=== PATIENT | male | born 1960 | race Caucasian/White ===

== ENCOUNTER 2017-11-13 13:06 | Inpatient (IN) | payer BC ==
[~2017-11-13] VITALS: Ht 175.3 cm; Wt 79.7 kg
[~2017-11-13 13:06] MED LIST: CENTTAB41 PO; HYDC25 PO; OXYC-57 PO; PRLSR20 PO; PROM25TA; SERT-234 PO
[2017-11-13] MEDS ORDERED: VANCOMYCIN IV 1,000 MG in SODIUM CHLORIDE 0.9% 250ML 250 ML IV STA (13:53)
[2017-11-13] MEDS ORDERED: PIPERACILLIN/TAZOBACTAM 3.375 GM/100ML D5W IV STA (13:53)
[2017-11-13] MEDS ORDERED: ACETAMINOPHEN IV 1,000 MG in EMPTY BAG 0 ML IV ONE (14:00)
[2017-11-13] MEDS ORDERED: SODIUM CHLORIDE 0.9% 1000ML 1,000 ML IV ONE (14:00)
[2017-11-13] MEDS ORDERED: MoRPHine SULFATE 4 MG/ML 1 ML CARP\\VIAL IV ONE (14:00)
[2017-11-13 14:19] LABS: BASO % 0.2 %; BASO ABS # 0.03 K/uL (0-0.2); EOS % 0.6 %; EOS ABS # 0.08 K/uL (0-0.5); HEMATOCRIT 40.4 % (42-52); HEMOGLOBIN 14.3 g/dL (14.0-18.0); IG# 0.05 K/uL (0.00-0.02); LYMPH % 13.9 %; LYMPH ABS # 1.78 K/uL (1.2-3.4); MEAN CELL VOLUME 88.6 fL (80-100); MEAN CORPUSCULAR HEMOGLOBIN 31.4 pg (25-34); MEAN CORPUSCULAR HGB CONC 35.4 g/dl (32-36); MEAN PLATELET VOLUME 10.3 fL (7.4-10.4); MONO % 15.5 %; MONO ABS # 1.98 K/uL (0.11-0.59); NEUT % 69.4 %; NEUT ABS # 8.84 K/uL (1.4-6.5); PLATELET COUNT 162 K/uL (130-400); RED CELL DISTRIBUTION WIDTH CV 12.6 % (11.5-14.5); RED CELL DISTRIBUTION WIDTH SD 40.7 fL (36.4-46.3); WHITE BLOOD COUNT 12.76 K/uL (4.8-10.8)
[2017-11-13 14:38] LABS: ALBUMIN 3.5 gm/dl (3.4-5.0); CALCIUM 8.6 mg/dl (8.5-10.1); CREATININE 0.88 mg/dl (0.60-1.40); POTASSIUM 4.1 mmol/L (3.5-5.1); TOTAL PROTEIN 7.3 gm/dl (6.4-8.2); URIC ACID 3.5 mg/dl (2.6-7.2)
[2017-11-13] MEDS ORDERED: CITA-295 PO (15:03)
[2017-11-13] MEDS ORDERED: LISI-729 PO (15:03)
[2017-11-13] MEDS ORDERED: LOVA40TA3 PO (15:03)
[2017-11-13] MEDS ORDERED: PRLSR20 PO (15:03)
[2017-11-13] MEDS ORDERED: MELO-84 PO (15:03)
[2017-11-13] MEDS ORDERED: ESOM20CA PO (15:03)
--- NOTE | 2017-11-13 15:11 | DIAGNOSTIC IMAGING REPORT ---
R ANKLE MIN 3 VIEWS ROUTINE, R FOOT MIN 3 VIEWS ROUTINE HISTORY: 57 years-old Male Right ankle pain acute right foot and ankle pain COMPARISON: None available TECHNIQUE: 3 views of the right ankle and 3 views of the right foot FINDINGS: ANKLE: Mild marginal spurring about the tibiotalar joint. No acute fracture, dislocation or osteochondral defect. Post traumatic and postoperative changes of the calcaneus as below. Prominent dorsal spurring about the anterior process talus. Large enthesophyte about the Achilles calcaneus. Moderate joint effusion. Mild soft tissue swelling about the ankle, greatest laterally. Suspected vascular calcifications. FOOT: Chronic healed fracture deformity of the calcaneus with multiple plate and screw fusion hardware from prior ORIF. Degenerative changes of the calcaneal cuboid articulation with bony fusion of the subtalar joint. No evidence of hardware fracture or loosening. Type I accessory navicular. Mild to moderate osteoarthritis about the first MTP joint with mild hallux valgus deformity. No acute fracture or dislocation identified. IMPRESSION: 1. Soft tissue swelling without acute fracture or dislocation. 2. Postoperative changes of the calcaneus as above without evidence of hardware fracture or loosening. The above report was generated using voice recognition software. It may contain grammatical, syntax or spelling errors. Electronically signed by: Ulises Rosenbaum M.D. 11/13/2017 3:10 PM Dictated Date/Time: 11/13/2017 3:06 PM
--- NOTE | 2017-11-13 15:54 | EMERGENCY ROOM VISIT NOTE ---
History First contact with patient: 13:33 Chief Complaint: SWELLING TO EXTREMITY Stated Complaint: REFERRED BY History of Present Illness The patient is a 57 year old male who presents to the Emergency Room with complaints of pain and swelling to his right foot and ankle that is worsening over the past 2 days. The patient has a significant history of injury to both his right and left foot and ankle after falling out of a tree stand during hunting season 15 feet about 10 years ago. The patient subsequently developed infection that required multiple surgical washouts and a PICC line at home. Much of his repeat surgeries have been to his left lower extremity, but now he has pain in his right foot and right ankle. He attempted to go to work yesterday, but had worsening pain and a fever. He saw his primary care physician where he had outpatient blood work drawn and showed an elevated white count of greater than 18,000. He also had x-rays that showed possible malalignment of some of his hardware. The patient was started on Keflex and has taken 2 doses of the medication at this point. When the patient got up today his pain was much worse than yesterday and he was not able to walk without crutches. He takes Mobic daily, but this has not significantly improved his symptoms. Patient does not report tick bite or history of gout. He does not have pain of his knees, hips, or back. He rates his current discomfort a 7/10 that worsens with walking. Review of Systems More than 10 systems were reviewed and otherwise negative with the exception of history of present illness. Past Medical/Surgical History Medical Problems: (1) Anxiety (2) Depression (3) GERD (gastroesophageal reflux disease) (4) HLD (hyperlipidemia) (5) HTN (hypertension) (6) Tobacco use disorder (7) Traumatic injury of left lower extremity (8) Traumatic injury of right lower extremity History of multiple surgeries to right lower and left lower extremities Family History No pertinent family history Social History Smoking Status: Current Every Day Smoker Current/Historical Medications Scheduled Citalopram Hydrobromide (Citalopram), 20 MG PO DAILY Esomeprazole Magnesium (Nexium), 20 MG PO DAILY Lisinopril (Prinivil), 5 MG PO DAILY Lovastatin (Mevacor), 40 MG PO HS Meloxicam (Mobic), 15 MG PO DAILY Multivitamin (Multivitamin), 1 TAB PO DAILY Physical Exam Vital Signs Date Time Temp Pulse Resp B/P (MAP) Pulse Ox O2 Delivery O2 Flow Rate FiO2 11/13/17 16:21 66 18 86/47 95 Room Air 11/13/17 15:06 76 18 101/52 95 Room Air 11/13/17 13:09 37.8 92 16 131/81 96 Room Air Physical Exam VITALS: Vitals are noted on the nurse's note and reviewed by myself. Vital signs with low-grade fever GENERAL: Well-developed, well-nourished, white male, who is in no acute distress and resting comfortably. Patient is cooperative with the examination. HEART: Regular rate and rhythm without murmurs gallops or rubs. LUNGS: Clear to auscultation bilaterally without wheezes, rales or rhonchi. No retractions or accessory muscle use. MUSCULOSKELETAL: Erythema and edema is appreciated over the right lower extremity across the plantar aspect of the foot on the right lateral side as well as into the right ankle. There is no appreciable fluctuance or joint space effusion. Patient is able to wiggle the toes and has full sensation distally. There is mild tenderness around the anterior and posterior ankle without obvious palpable cord or lymphangitic streaking. Patient is able to plantarflex and dorsiflex NEURO: Patient was alert and oriented to person place and time. CN II through XII grossly intact. No focal neurological deficits. SKIN: The skin was without other rashes, erythema, edema, or bruising. Capillary refill less than 2 seconds. Medical Decision & Procedures ER Provider Diagnostic Interpretation: R ANKLE MIN 3 VIEWS ROUTINE, R FOOT MIN 3 VIEWS ROUTINE HISTORY: 57 years-old Male Right ankle pain acute right foot and ankle pain COMPARISON: None available TECHNIQUE: 3 views of the right ankle and 3 views of the right foot FINDINGS: ANKLE: Mild marginal spurring about the tibiotalar joint. No acute fracture, dislocation or osteochondral defect. Post traumatic and postoperative changes of the calcaneus as below. Prominent dorsal spurring about the anterior process talus. Large enthesophyte about the Achilles calcaneus. Moderate joint effusion. Mild soft tissue swelling about the ankle, greatest laterally. Suspected vascular calcifications. FOOT: Chronic healed fracture deformity of the calcaneus with multiple plate and screw fusion hardware from prior ORIF. Degenerative changes of the calcaneal cuboid articulation with bony fusion of the subtalar joint. No evidence of hardware fracture or loosening. Type I accessory navicular. Mild to moderate osteoarthritis about the first MTP joint with mild hallux valgus deformity. No acute fracture or dislocation identified. IMPRESSION: 1. Soft tissue swelling without acute fracture or dislocation. 2. Postoperative changes of the calcaneus as above without evidence of hardware fracture or loosening. Laboratory Results 11/13/17 14:00 Red Blood Count 4.56, Mean Corpuscular Volume 88.6, Mean Corpuscular Hemoglobin 31.4, Mean Corpuscular Hemoglobin Concent 35.4, Mean Platelet Volume 10.3, Neutrophils (%) (Auto) 69.4, Lymphocytes (%) (Auto) 13.9, Monocytes (%) (Auto) 15.5, Eosinophils (%) (Auto) 0.6, Basophils (%) (Auto) 0.2, Neutrophils # (Auto ) 8.84, Lymphocytes # (Auto) 1.78, Monocytes # (Auto) 1.98, Eosinophils # (Auto ) 0.08, Basophils # (Auto) 0.03 11/13/17 14:00 Test 11/13/17 14:00 11/13/17 14:11 White Blood Count 12.76 K/uL (4.8-10.8) Red Blood Count 4.56 M/uL (4.7-6.1) Hemoglobin 14.3 g/dL (14.0-18.0) Hematocrit 40.4 % (42-52) Mean Corpuscular Volume 88.6 fL (80-100) Mean Corpuscular Hemoglobin 31.4 pg (25-34) Mean Corpuscular Hemoglobin Concent 35.4 g/dl (32-36) Platelet Count 162 K/uL (130-400) Mean Platelet Volume 10.3 fL (7.4-10.4) Neutrophils (%) (Auto) 69.4 % Lymphocytes (%) (Auto) 13.9 % Monocytes (%) (Auto) 15.5 % Eosinophils (%) (Auto) 0.6 % Basophils (%) (Auto) 0.2 % Neutrophils # (Auto) 8.84 K/uL (1.4-6.5) Lymphocytes # (Auto) 1.78 K/uL (1.2-3.4) Monocytes # (Auto) 1.98 K/uL (0.11-0.59) Eosinophils # (Auto) 0.08 K/uL (0-0.5) Basophils # (Auto) 0.03 K/uL (0-0.2) RDW Standard Deviation 40.7 fL (36.4-46.3) RDW Coefficient of Variation 12.6 % (11.5-14.5) Immature Granulocyte % (Auto) 0.4 % Immature Granulocyte # (Auto) 0.05 K/uL (0.00-0.02) Erythrocyte Sedimentation Rate 40 mm/hr (0-14) Anion Gap 6.0 mmol/L (3-11) Est Creatinine Clear Calc Drug Dose 93.8 ml/min Estimated GFR () 111.3 Estimated GFR (Non- 96.0 BUN/Creatinine Ratio 13.2 (10-20) Uric Acid 3.5 mg/dl (2.6-7.2) Calcium Level 8.6 mg/dl (8.5-10.1) Total Bilirubin 0.4 mg/dl (0.2-1) Aspartate Amino Transf (AST/SGOT) 12 U/L (15-37) Alanine Aminotransferase (ALT/SGPT) 19 U/L (12-78) Alkaline Phosphatase 77 U/L (45-117) C-Reactive Protein 10.70 mg/dl (0-0.29) Total Protein 7.3 gm/dl (6.4-8.2) Albumin 3.5 gm/dl (3.4-5.0) Globulin 3.8 gm/dl (2.5-4.0) Albumin/Globulin Ratio 0.9 (0.9-2) Lyme Disease IgG Antibody NEG (NEG) Lyme Disease IgM Antibody NEG (NEG) Bedside Lactic Acid Venous 0.43 mmol/L (0.90-1.70) Medications Administered Medications (Trade) Dose Ordered Sig/Sally Route Start Time Stop Time Status Last Admin Dose Admin Sodium Chloride 1,000 ml @ 999 mls/hr Q1H1M ONCE IV 11/13/17 14:00 11/13/17 15:00 DC 11/13/17 14:14 999 MLS/HR Morphine Sulfate (MoRPHine SULFATE INJ) 4 mg NOW ONCE IV 11/13/17 14:00 11/13/17 14:01 DC 11/13/17 14:10 4 MG Vancomycin HCl 1000 mg/Sodium Chloride 270 ml @ 125 mls/hr NOW STAT IV 5/18/18 13:53 11/13/17 16:02 DC 11/13/17 14:42 125 MLS/HR Piperacillin Sod/ Tazobactam Sod (Zosyn Iv) 3.375 gm NOW STAT IV 11/13/17 13:53 11/13/17 13:59 DC 11/13/17 14:32 3.375 GM Acetaminophen 1000 mg/Empty Bag 100 ml @ 400 mls/hr NOW ONCE IV 11/13/17 14:00 11/13/17 14:14 DC 11/13/17 14:10 400 MLS/HR ED Course Physical exam and history were performed. Nursing notes, EMR, and Medication List were personally reviewed. Patient appears to have cellulitis of the right lower foot and ankle worsening over the past few days. Based on the exam I do not appreciate an obvious abscess or drainable collection. He does not seem to have a distinctly septic joint. He has been febrile at home and has an outpatient white blood cell count of greater than 18,000, making infection highly concerning. IV access was established and labs were obtained. The patient was hydrated with normal saline. He was given IV vancomycin and Zosyn here in the department after blood cultures were gathered. The patient was given morphine for pain control. Plain films and ultrasound were ordered. The patient's blood work is as above and was reviewed. He does have a consistent white blood cell count elevation, however this is slightly improved at 12.7. His lactic acid is negative with cultures pending. CRP and sed rate are both elevated. Uric acid and Lyme were negative. His x-rays show hardware and edema but no obvious new fracture findings. Ultrasound does not show evidence of DVT. The case was discussed with my attending physician, Dr. Kincaid, and we are concerned as the patient has a cellulitis in the area of previous surgery. The case was discussed with the [facility], who agreed to evaluate the patient here in the department. Of note, [facility] did consult orthopedics, who recommended a CT scan be performed. This will be performed from the floor and the patient will be evaluated by orthopedics after admission. Please see the [facility] dictation for further patient course, plan, and disposition. The chart was completed utilizing [employer] Voice Recognition Software. Grammatical errors, random word insertions, pronoun errors, and incomplete sentences are an occasional consequence of this system due to software limitations, ambient noise, and hardware issues. Any formal questions or concerns about the content, text, or information contained within the body of this dictation should be directly addressed to the provider for clarification. . Medical Decision Differential diagnosis: Etiologies such as cellulitis, abscess, MRSA infection, DVT, necrotizing fasciitis, dermatitis, drug eruption, as well as others were entertained.. Impression Primary Impression: Cellulitis of right lower extremity Departure Information Referrals Maeve Asher D.O. (PCP) Patient Instructions My [facility]
[2017-11-13] MEDS ORDERED: ACETAMINOPHEN 325 MG TAB PO PRN (16:30)
[2017-11-13] MEDS ORDERED: MULT-506 PO (16:31)
--- NOTE | 2017-11-13 16:37 | History and Physical ---
History & Physical Date & Time of Service: November 13, 2017 at 16:36 Chief Complaint: Referred By Primary Care Physician: Maeve Asher D.O. History of Present Illness Source: patient, family (at bedside ), clinic records, hospital records This is a 57yo M with a PMH of traumatic injuries to BLE in 2006 s/p multiple surgeries, HTN, HLD, tobacco use disorder and other medical problems listed below who presents with R foot/ankle pain and swelling x 2 days. Patient's history is significant for multiple orthopedic surgeries after he fell ~15 feet out of a tree stand while hunting in 2006. Developed an infection after initial surgery and required multiple washouts and PICC line abx in [id number]. A majority of surgeries were performed in [place] by Dr. Benedict and hardware is present in both lower extremities. Denies having any issues since 2007. Over the past few days, has been experiencing worsening pain in lateral aspect of R ankle and foot with associated swelling and redness. Denies recent fall, trauma or wound. No history of gout or tick bites. Tried to go to work yesterday but developed worsening pain and fever. Went to urgent care and was started on Keflex. Pain worsened overnight and patient saw PCP this morning. Was found to have a fever of 101 and leukocytosis of 18 and was sent to ED for further evaluation of infection. Patient is unable to ambulate without crutches. Pain persists at a 6/10 despite morphine. Denies chills, lightheadedness, headache, visual changes, URI symptoms, chest pain, SOB, abd pain, nausea, vomiting, dysuria, constipation or diarrhea. Found to have a low grade fever of 100, leukocytosis of 12.75 and elevated ESR and CRP. Lactate is WNL. Past Medical/Surgical History Medical Problems: (1) Anxiety Status: Chronic (2) Depression Status: Chronic (3) GERD (gastroesophageal reflux disease) Status: Chronic (4) HLD (hyperlipidemia) Status: Chronic (5) HTN (hypertension) Status: Chronic (6) Tobacco use disorder Status: Chronic (7) Traumatic injury of left lower extremity Permanent Comment: S/p multiple surgeries by [facility]. 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 ) Immunizations History of Influenza Vaccine: No History of Tetanus Vaccine?: Yes Tetanus Immunization Date: Jul 07, 2002 History of Pneumococcal: No History of Hepatitis B Vaccine: No Allergies Coded Allergies: No Known Allergies (Verified , 11/13/17) Home Medications Scheduled Citalopram Hydrobromide (Citalopram), 20 MG PO DAILY Esomeprazole Magnesium (Nexium), 20 MG PO DAILY Lisinopril (Prinivil), 5 MG PO DAILY Lovastatin (Mevacor), 40 MG PO HS Meloxicam (Mobic), 15 MG PO DAILY Multivitamin (Multivitamin), 1 TAB PO DAILY Review of Systems Ten systems reviewed and negative except as noted in the HPI. Physical Exam Vital Signs Date Time Temp Pulse Resp B/P (MAP) Pulse Ox O2 Delivery O2 Flow Rate FiO2 11/13/17 16:21 66 18 86/47 95 Room Air 11/13/17 15:06 76 18 101/52 95 Room Air 11/13/17 13:09 37.8 92 16 131/81 96 Room Air General Appearance: WD/WN, no apparent distress Head: normocephalic, atraumatic Eyes: normal inspection, PERRL, sclerae normal ENT: normal ENT inspection, hearing grossly normal, pharynx normal Neck: supple, thyroid normal, trachea midline Respiratory/Chest: chest non-tender, lungs clear, normal breath sounds, no respiratory distress, no accessory muscle use Cardiovascular: regular rate, rhythm, no murmur, normal peripheral pulses Abdomen/GI: non tender, soft, no organomegaly Back: normal inspection Extremities/Musculoskelatal: no calf tenderness, no pedal edema, + pertinent finding (Lateral R foot/ankle with TTP, edema, redness and warmth to touch) Neurologic/Psych: no motor/sensory deficits, alert, normal mood/affect, oriented x 3 Skin: normal color, warm/dry Diagnostics Laboratory Results Results Past 24 Hours Test 11/13/17 14:00 11/13/17 14:11 Range/Units White Blood Count 12.76 4.8-10.8 K/uL Red Blood Count 4.56 4.7-6.1 M/uL Hemoglobin 14.3 14.0-18.0 g/dL Hematocrit 40.4 42-52 % Mean Corpuscular Volume 88.6 80-100 fL Mean Corpuscular Hemoglobin 31.4 25-34 pg Mean Corpuscular Hemoglobin Concent 35.4 32-36 g/dl Platelet Count 162 130-400 K/uL Mean Platelet Volume 10.3 7.4-10.4 fL Neutrophils (%) (Auto) 69.4 % Lymphocytes (%) (Auto) 13.9 % Monocytes (%) (Auto) 15.5 % Eosinophils (%) (Auto) 0.6 % Basophils (%) (Auto) 0.2 % Neutrophils # (Auto) 8.84 1.4-6.5 K/uL Lymphocytes # (Auto) 1.78 1.2-3.4 K/uL Monocytes # (Auto) 1.98 0.11-0.59 K/uL Eosinophils # (Auto) 0.08 0-0.5 K/uL Basophils # (Auto) 0.03 0-0.2 K/uL RDW Standard Deviation 40.7 36.4-46.3 fL RDW Coefficient of Variation 12.6 11.5-14.5 % Immature Granulocyte % (Auto) 0.4 % Immature Granulocyte # (Auto) 0.05 0.00-0.02 K/uL Erythrocyte Sedimentation Rate 40 0-14 mm/hr Sodium Level 136 136-145 mmol/L Potassium Level 4.1 3.5-5.1 mmol/L Chloride Level 106 98-107 mmol/L Carbon Dioxide Level 24 21-32 mmol/L Anion Gap 6.0 3-11 mmol/L Blood Urea Nitrogen 12 7-18 mg/dl Creatinine 0.88 0.60-1.40 mg/dl Est Creatinine Clear Calc Drug Dose 93.8 ml/min Estimated GFR () 111.3 Estimated GFR (Non- 96.0 BUN/Creatinine Ratio 13.2 10-20 Random Glucose 114 70-99 mg/dl Uric Acid 3.5 2.6-7.2 mg/dl Calcium Level 8.6 8.5-10.1 mg/dl Total Bilirubin 0.4 0.2-1 mg/dl Aspartate Amino Transf (AST/SGOT) 12 15-37 U/L Alanine Aminotransferase (ALT/SGPT) 19 12-78 U/L Alkaline Phosphatase 77 45-117 U/L C-Reactive Protein 10.70 0-0.29 mg/dl Total Protein 7.3 6.4-8.2 gm/dl Albumin 3.5 3.4-5.0 gm/dl Globulin 3.8 2.5-4.0 gm/dl Albumin/Globulin Ratio 0.9 0.9-2 Lyme Disease IgG Antibody NEG NEG Lyme Disease IgM Antibody NEG NEG Bedside Lactic Acid Venous 0.43 0.90-1.70 mmol/L Microbiology Results 11/13/17 Blood Culture, Received Pending 11/13/17 Blood Culture, Received Pending Diagnostic Radiology R ANKLE and FOOT XR: ANKLE: Mild marginal spurring about the tibiotalar joint. No acute fracture, dislocation or osteochondral defect. Post traumatic and postoperative changes of the calcaneus as below. Prominent dorsal spurring about the anterior process talus. Large enthesophyte about the Achilles calcaneus. Moderate joint effusion. Mild soft tissue swelling about the ankle, greatest laterally. Suspected vascular calcifications. FOOT: Chronic healed fracture deformity of the calcaneus with multiple plate and screw fusion hardware from prior ORIF. Degenerative changes of the calcaneal cuboid articulation with bony fusion of the subtalar joint. No evidence of hardware fracture or loosening. Type I accessory navicular. Mild to moderate osteoarthritis about the first MTP joint with mild hallux valgus deformity. No acute fracture or dislocation identified. IMPRESSION: 1. Soft tissue swelling without acute fracture or dislocation. 2. Postoperative changes of the calcaneus as above without evidence of hardware fracture or loosening. Impression Assessment and Plan This is a 57yo M with a PMH of traumatic injuries to BLE in 2006 s/p multiple surgeries, HTN, HLD, tobacco use disorder and other medical problems listed below who presents with R foot/ankle pain and swelling x 2 days. RLE cellulitis: -Meets SIRs criteria with out-patient fever of 101 and leuk of 12 -Non-toxic appearing -Lactate WNL -ESR of 40, CRP of 10.7, uric acid normal -Blood cultures pending -Ankle/foot XR with soft tissue swelling without acute fracture or dislocation No evidence of hardware fracture or loosening -RLE ultrasound without evidence of DVT -Empiric coverage with vanco, zosyn -IV fluids, pain control -Ortho consult in setting of complicated surgical hx and possible septic joint, hardware infection HTN: -Normotensive -Cont lisinopril Tobacco use disorder: -H/o 40 pack years -Not interested in cessation -Nicotine patch HLD: -Cont lovastatin Mood disorder: -Cont celexa GERD: -Cont PPI DVT Ppx: Lovenox SQ Code status: FULL PCP: [facility] Dispo: Admitted to med/surg. Plan to return home once medically stable. Patient seen in collaboration with Dr. Harrington. Please see addendum. ATTENDING ADDENDUM The patient was seen and examined in medical floor Admitted with right ankle pain, swelling and redness for about 1 week Has a fever as well Denies any chest pain, shortness of breath and/or palpitation on examination No apparent distress at rest Hemodynamically stable Local exam of the right ankle: Mildly swollen, redness involving lateral medial area, tender with increased local temperature is Ankle movement is moderately painful Labs, imaging studies were reviewed Heart the consulted Review with assessment and plan as mentioned earlier Dr. Varinder Harrington Resuscitation Status VTE Prophylaxis Will order VTE Prophylaxis: Yes
[2017-11-13] MEDS ORDERED: VANCOMYCIN CONSULT ACTIVE PRN (16:45)
[2017-11-13] MEDS ORDERED: PIPERACILL/TAZOBAC CONSULT ACTIVE PRN (16:45)
--- NOTE | 2017-11-13 16:51 | DIAGNOSTIC IMAGING REPORT ---
ULTRASOUND R VENOUS DOPP LOWER EXT UNILAT CLINICAL HISTORY: right lower extremity swelling COMPARISON STUDY: No previous studies for comparison. FINDINGS: Real-time and color flow Doppler imaging were performed. Flow was seen within the femoral, popliteal and calf veins with no intraluminal thrombus demonstrated. The saphenous vein is patent. IMPRESSION: No evidence of right lower extremity DVT. Electronically signed by: Miah Harper M.D. 11/13/2017 4:50 PM Dictated Date/Time: 11/13/2017 4:50 PM
[2017-11-13] MEDS ORDERED: VANCOMYCIN IV 1,000 MG in SODIUM CHLORIDE 0.9% 250ML 250 ML IV SCH (17:00)
[2017-11-13 18:10] VITALS: BP 108/57; PULSE 67; TEMP 36.9; O2SAT 97; Ht 175.3 cm; Wt 79.7 kg
[2017-11-13] MEDS: KETOROLAC TROMETHAMINE 30 MG/ML VIAL IV PRN (18:42)
[2017-11-13 19:03] LABS: PTT PATIENT 26.6 SECONDS (21.0-31.0)
--- NOTE | 2017-11-13 19:21 | Pharmacy Progress Note ---
Pharmacy Antibiotic Consult Date of Service: November 13, 2017. Pharmacy Dosing Scope Pharmacy is consulted to initiate VANCOMYCIN / ZOSYN IV dosing therapy, order appropriate labs and adjust drug dose/frequency. Subjective The patient is a 57 year old male admitted on November 13, 2017 at 16:22. Objective Height (Feet): 5 Height (Inches): 9.00 Weight (Kilograms): 79.700 Lab Results (24hrs): Test 11/13/17 14:00 11/13/17 14:11 White Blood Count 12.76 K/uL (4.8-10.8) Red Blood Count 4.56 M/uL (4.7-6.1) Hemoglobin 14.3 g/dL (14.0-18.0) Hematocrit 40.4 % (42-52) Mean Corpuscular Volume 88.6 fL (80-100) Mean Corpuscular Hemoglobin 31.4 pg (25-34) Mean Corpuscular Hemoglobin Concent 35.4 g/dl (32-36) Platelet Count 162 K/uL (130-400) Mean Platelet Volume 10.3 fL (7.4-10.4) Neutrophils (%) (Auto) 69.4 % Lymphocytes (%) (Auto) 13.9 % Monocytes (%) (Auto) 15.5 % Eosinophils (%) (Auto) 0.6 % Basophils (%) (Auto) 0.2 % Neutrophils # (Auto) 8.84 K/uL (1.4-6.5) Lymphocytes # (Auto) 1.78 K/uL (1.2-3.4) Monocytes # (Auto) 1.98 K/uL (0.11-0.59) Eosinophils # (Auto) 0.08 K/uL (0-0.5) Basophils # (Auto) 0.03 K/uL (0-0.2) RDW Standard Deviation 40.7 fL (36.4-46.3) RDW Coefficient of Variation 12.6 % (11.5-14.5) Immature Granulocyte % (Auto) 0.4 % Immature Granulocyte # (Auto) 0.05 K/uL (0.00-0.02) Erythrocyte Sedimentation Rate 40 mm/hr (0-14) Prothrombin Time 10.0 SECONDS (9.0-12.0) Prothromb Time International Ratio 1.0 (0.9-1.1) Activated Partial Thromboplast Time 26.6 SECONDS (21.0-31.0) Partial Thromboplastin Ratio 1.0 Sodium Level 136 mmol/L (136-145) Potassium Level 4.1 mmol/L (3.5-5.1) Chloride Level 106 mmol/L (98-107) Carbon Dioxide Level 24 mmol/L (21-32) Anion Gap 6.0 mmol/L (3-11) Blood Urea Nitrogen 12 mg/dl (7-18) Creatinine 0.88 mg/dl (0.60-1.40) Est Creatinine Clear Calc Drug Dose 93.8 ml/min Estimated GFR () 111.3 Estimated GFR (Non- 96.0 BUN/Creatinine Ratio 13.2 (10-20) Random Glucose 114 mg/dl (70-99) Uric Acid 3.5 mg/dl (2.6-7.2) Calcium Level 8.6 mg/dl (8.5-10.1) Total Bilirubin 0.4 mg/dl (0.2-1) Aspartate Amino Transf (AST/SGOT) 12 U/L (15-37) Alanine Aminotransferase (ALT/SGPT) 19 U/L (12-78) Alkaline Phosphatase 77 U/L (45-117) C-Reactive Protein 10.70 mg/dl (0-0.29) Total Protein 7.3 gm/dl (6.4-8.2) Albumin 3.5 gm/dl (3.4-5.0) Globulin 3.8 gm/dl (2.5-4.0) Albumin/Globulin Ratio 0.9 (0.9-2) Lyme Disease IgG Antibody NEG (NEG) Lyme Disease IgM Antibody NEG (NEG) Bedside Lactic Acid Venous 0.43 mmol/L (0.90-1.70) Micro Results: * 11/13/17 -- Blood x 2 -- pending Assessment & Plan 57yo male ordered VANCOMYCIN / ZOSYN for RLE cellulitis. Renal function is good. VANCOMYCIN: * Loading dose: VANCOMYCIN 1000mg IV X 1 dose in ER + second VANCOMYCIN 1000mg IV X 1 dose in ER for a total loading dose of 2000mg (25 mg/kg) then VANCOMYCIN 1250mg (~16mg/kg) IV every 10 hours. * Goal trough level estimate: between 15 - 20 mcg/mL. * Estimated Pk parameters: Vd ~0.7 L/kg Ke ~0.082 t1/2 ~8 hours * Trough level has been ordered for: @ 0000. Pharmacy will continue to follow and will adjust dose/frequency as necessary. Thank you
[2017-11-13] MEDS: SODIUM CHLORIDE 0.9% 1000ML 1,000 ML IV SCH (19:45)
[2017-11-13] MEDS: NICOTINE 21 MG/24 HR TDSY TD SCH (19:46)
[2017-11-13] MEDS: ENOXAPARIN 40 MG/0.4 ML SYR SQ SCH (19:46)
[2017-11-13] MEDS: PIPERACILL/TAZOBAC IV 3.375 GM in D5W 100ML IV SCH (19:46)
[2017-11-13] MEDS: LOVASTATIN 20 MG TAB PO SCH (20:38)
--- NOTE | 2017-11-13 21:12 | DIAGNOSTIC IMAGING REPORT ---
CT RIGHT FOOT WITH CONTRAST CT DOSE: 197.64 mGy.cm CLINICAL HISTORY: Right foot swelling. Possible abscess. History of calcaneal fracture. TECHNIQUE: The patient was scanned in a dynamic helical fashion during intravenous administration of 119 cc of Optiray 320 A dose lowering technique was utilized adhering to the principles of ALARA. Sagittal and coronal reformatted imaging was performed COMPARISON STUDY: Conventional radiographic study dated 11/13/2017 FINDINGS: There is an internally fixated calcaneal fracture. There is a lateral metallic plate with multiple screws. 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 One of the screws projects into the nonunion. There is also a screw which extends into the calcaneocuboid joint. There is mild soft tissue edema. There are no fluid collections to indicate an abscess. There is also radiographic evidence of a subtalar fusion. IMPRESSION: 1. Postoperative changes of a subtalar fusion and internally fixated calcaneal fracture 2. Chronic nonunion of the calcaneal fracture 3. One of the screws extends to the calcaneocuboid joint 4. Soft tissue edema 5. No evidence of abscess Electronically signed by: Miah Harper M.D. 11/13/2017 9:11 PM Dictated Date/Time: 11/13/2017 9:05 PM
[2017-11-13] MEDS ORDERED: OPTIRAY 320 IV PRN (21:15)
[2017-11-13 22:55] VITALS: BP 97/60; PULSE 69; TEMP 36.6; O2SAT 96
[2017-11-14] MEDS: KETOROLAC TROMETHAMINE 30 MG/ML VIAL IV PRN ×4 (00:45→22:00)
[2017-11-14] MEDS: VANCOMYCIN IV 1,250 MG in SODIUM CHLORIDE 0.9% 250ML 250 ML IV SCH ×2 (03:42→14:04)
[2017-11-14] MEDS: SODIUM CHLORIDE 0.9% 1000ML 1,000 ML IV SCH ×3 (03:42→17:05)
[2017-11-14] MEDS: PIPERACILL/TAZOBAC IV 3.375 GM in D5W 100ML IV SCH ×3 (03:42→19:34)
[2017-11-14 07:01] VITALS: BP 121/74; PULSE 79; TEMP 37.1; O2SAT 96
[2017-11-14 07:01] LABS: HEMATOCRIT 36.2 % (42-52); HEMOGLOBIN 12.7 g/dL (14.0-18.0); MEAN CELL VOLUME 88.5 fL (80-100); MEAN CORPUSCULAR HEMOGLOBIN 31.1 pg (25-34); MEAN CORPUSCULAR HGB CONC 35.1 g/dl (32-36); MEAN PLATELET VOLUME 10.3 fL (7.4-10.4); PLATELET COUNT 132 K/uL (130-400); RED CELL DISTRIBUTION WIDTH CV 12.6 % (11.5-14.5); RED CELL DISTRIBUTION WIDTH SD 40.7 fL (36.4-46.3); WHITE BLOOD COUNT 12.78 K/uL (4.8-10.8)
[2017-11-14 07:20] LABS: CALCIUM 7.7 mg/dl (8.5-10.1); CREATININE 0.94 mg/dl (0.60-1.40)
[2017-11-14] MEDS: LISINOPRIL 5 MG TAB PO SCH (08:33)
[2017-11-14] MEDS: MULTIVITAMIN TAB PO SCH (08:33)
[2017-11-14] MEDS: CITALOPRAM 20 MG TAB PO SCH (08:33)
[2017-11-14] MEDS: NICOTINE 21 MG/24 HR TDSY TD SCH (08:34)
[2017-11-14] MEDS: PANTOprazole SOD 40 MG TAB PO SCH (08:34)
--- NOTE | 2017-11-14 10:11 | Orthopedic Consultation ---
Orthopedic Consultation Date of Consultation: November 14, 2017. Attending Physician: Kodak Harrington M.D. Reason for Consultation: Right foot infection History of Present Illness Mr. Márquez is a very pleasant 57-year-old gentleman who fell out of his tree stand back in 2006 sustaining a right calcaneus fracture that was treated with open reduction internal fixation by Dr. Calvin. He also sustained a left open pilon fracture that went on to require 12 surgeries including flap coverage and ankle fusion with his definitive treatment done by Dr. Benedict at [facility]. Patient reports he was doing well in terms of the right foot until Thursday. He says it started hurting that evening. On when he woke up he had a hard time walking on it. He was seen by his primary care physician at [facility] and given oral antibiotics. Unfortunately this failed to improve his symptoms. He was having to use crutches. Yesterday he came to the emergency room and was admitted to the hospital overnight for cellulitis in the right lateral foot. He denies any current fevers or chills. He says the redness and swelling he has now appears fairly similar to what it was yesterday. He still having pain with ambulation. Patient denies any numbness or tingling. Patient states he would occasionally have some soreness before Thursday but nothing intolerable. He has never had any drainage from that wound. 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 ) Allergies Coded Allergies: No Known Allergies (Verified , 11/13/17) Home Medications Scheduled Citalopram Hydrobromide (Citalopram), 20 MG PO DAILY Esomeprazole Magnesium (Nexium), 20 MG PO DAILY Lisinopril (Prinivil), 5 MG PO DAILY Lovastatin (Mevacor), 40 MG PO HS Meloxicam (Mobic), 15 MG PO DAILY Multivitamin (Multivitamin), 1 TAB PO DAILY Current Inpatient Medications Current Inpatient Medications Medications (Trade) Dose Ordered Sig/Sally Route Start Time Stop Time Status Last Admin Dose Admin Enoxaparin Sodium (Lovenox Inj) 40 mg Q24H SQ 11/13/17 20:00 12/13/17 19:59 11/13/17 19:46 40 MG Acetaminophen (Tylenol Tab) 650 mg Q4H PRN PO 11/13/17 16:30 12/13/17 16:29 Sodium Chloride 1,000 ml @ 125 mls/hr Q8H IV 11/13/17 16:30 12/13/17 16:29 11/14/17 08:32 125 MLS/HR Ketorolac Tromethamine (Toradol Inj) 30 mg Q6H PRN IV 11/13/17 16:30 11/18/17 16:29 11/14/17 07:45 30 MG Nicotine (Nicoderm Cq 21MG Patch) 1 patch QAM TD 11/13/17 16:30 12/13/17 16:29 11/14/17 08:34 1 PATCH Miscellaneous (Remove Nicoderm Patch) 1 ea HS N/A 11/13/17 21:00 12/13/17 20:59 11/13/17 23:55 1 EA Morphine Sulfate (MoRPHine SULFATE INJ) 2 mg Q4 PRN IV 11/13/17 16:30 11/27/17 16:29 Miscellaneous Information (Consult) 1 ea UD PRN N/A 11/13/17 16:45 12/13/17 16:44 Citalopram Hydrobromide (celeXA TAB) 20 mg DAILY PO 11/14/17 09:00 12/14/17 08:59 11/14/17 08:33 20 MG Lisinopril (Zestril Tab) 5 mg DAILY PO 11/14/17 09:00 12/14/17 08:59 11/14/17 08:33 5 MG Lovastatin (Mevacor Tab) 40 mg HS PO 11/13/17 21:00 12/13/17 20:59 11/13/17 20:38 40 MG Multivitamins (Multivitamin Tab) 1 tab DAILY PO 11/14/17 09:00 12/14/17 08:59 11/14/17 08:33 1 TAB Pantoprazole Sodium (Protonix Tab) 40 mg QAM PO 11/14/17 09:00 12/14/17 08:59 11/14/17 08:34 40 MG Miscellaneous Information (Consult) 1 ea UD PRN N/A 11/13/17 16:45 12/13/17 16:44 Piperacillin Sod/ Tazobactam Sod 3.375 gm/Dextrose 115 ml @ 28.75 mls/ hr Q8H IV 11/13/17 20:00 11/23/17 19:59 11/14/17 03:42 28.75 MLS/HR Vancomycin HCl 1250 mg/Sodium Chloride 275 ml @ 125 mls/hr Q10H IV 11/14/17 04:00 11/24/17 03:59 11/14/17 03:42 125 MLS/HR Ioversol (Optiray 320) 100 ml UD PRN IV 11/13/17 21:15 11/17/17 21:14 Review of Systems Constitutional: No fever, No chills, No sweats Musculoskeletal: + joint pain, + swelling Neurologic: No numbness/tingling Physical Exam Date Time Temp Pulse Resp B/P (MAP) Pulse Ox O2 Delivery O2 Flow Rate FiO2 11/14/17 07:25 Room Air 11/14/17 07:01 37.1 79 16 121/74 (90) 96 Room Air 11/13/17 22:55 36.6 69 16 97/60 (72) 96 Room Air 11/13/17 19:45 Room Air 11/13/17 18:10 36.9 67 16 108/57 97 Room Air 11/13/17 18:10 36.9 67 16 108/57 (74) 97 Room Air 11/13/17 18:05 36.6 69 18 101/59 96 11/13/17 16:21 66 18 86/47 95 Room Air 11/13/17 15:06 76 18 101/52 95 Room Air 11/13/17 13:09 37.8 92 16 131/81 96 Room Air Examination of his right foot reveals some very faint erythema overlying the lateral aspect of the calcaneus with associated edema. He is tender to palpation over the midportion of the calcaneus between the posterior process and the anterior process. No tenderness at the subtalar joint. Mild tenderness at the calcaneocuboid joint. No tenderness over the plantar fat pad. Very mild tenderness at the Achilles tendon insertion. He has a L-shaped incision which is well-healed without any evidence of breakdown. Sensory intact to light touch sural saphenous superficial and deep peroneal and posterior tibial nerve distributions. Toes are warm and well-perfused. He has minimal inversion and eversion of the foot. He is able to fire his toe flexors and extensors tib ant, and gastrocsoleus without difficulty. Extremities/Musculoskelatal: + inflammation, + swelling Neurologic/Psych: no motor/sensory deficits, alert, normal mood/affect, oriented x 3 Laboratory Results Last 24 Hours Test 11/13/17 14:00 11/13/17 14:11 11/14/17 06:52 White Blood Count 12.76 K/uL 12.78 K/uL Red Blood Count 4.56 M/uL 4.09 M/uL Hemoglobin 14.3 g/dL 12.7 g/dL Hematocrit 40.4 % 36.2 % Mean Corpuscular Volume 88.6 fL 88.5 fL Mean Corpuscular Hemoglobin 31.4 pg 31.1 pg Mean Corpuscular Hemoglobin Concent 35.4 g/dl 35.1 g/dl Platelet Count 162 K/uL 132 K/uL Mean Platelet Volume 10.3 fL 10.3 fL Neutrophils (%) (Auto) 69.4 % Lymphocytes (%) (Auto) 13.9 % Monocytes (%) (Auto) 15.5 % Eosinophils (%) (Auto) 0.6 % Basophils (%) (Auto) 0.2 % Neutrophils # (Auto) 8.84 K/uL Lymphocytes # (Auto) 1.78 K/uL Monocytes # (Auto) 1.98 K/uL Eosinophils # (Auto) 0.08 K/uL Basophils # (Auto) 0.03 K/uL RDW Standard Deviation 40.7 fL 40.7 fL RDW Coefficient of Variation 12.6 % 12.6 % Immature Granulocyte % (Auto) 0.4 % Immature Granulocyte # (Auto) 0.05 K/uL Erythrocyte Sedimentation Rate 40 mm/hr Prothrombin Time 10.0 SECONDS Prothromb Time International Ratio 1.0 Activated Partial Thromboplast Time 26.6 SECONDS Partial Thromboplastin Ratio 1.0 Sodium Level 136 mmol/L 137 mmol/L Potassium Level 4.1 mmol/L 4.0 mmol/L Chloride Level 106 mmol/L 108 mmol/L Carbon Dioxide Level 24 mmol/L 23 mmol/L Anion Gap 6.0 mmol/L 6.0 mmol/L Blood Urea Nitrogen 12 mg/dl 12 mg/dl Creatinine 0.88 mg/dl 0.94 mg/dl Est Creatinine Clear Calc Drug Dose 93.8 ml/min 87.8 ml/min Estimated GFR () 111.3 104.6 Estimated GFR (Non- 96.0 90.3 BUN/Creatinine Ratio 13.2 13.0 Random Glucose 114 mg/dl 99 mg/dl Uric Acid 3.5 mg/dl Calcium Level 8.6 mg/dl 7.7 mg/dl Total Bilirubin 0.4 mg/dl Aspartate Amino Transf (AST/SGOT) 12 U/L Alanine Aminotransferase (ALT/SGPT) 19 U/L Alkaline Phosphatase 77 U/L C-Reactive Protein 10.70 mg/dl Total Protein 7.3 gm/dl Albumin 3.5 gm/dl Globulin 3.8 gm/dl Albumin/Globulin Ratio 0.9 Lyme Disease IgG Antibody NEG Lyme Disease IgM Antibody NEG Bedside Lactic Acid Venous 0.43 mmol/L Foot and ankle x-rays as well as CAT scan done yesterday in the emergency room are reviewed. These demonstrate a lateral calcaneal plate which is fractured at its midportion. There is a nonunion between the anterior and posterior process of the calcaneus. 1 of the screws enters the calcaneocuboid joint. There is soft tissue swelling noted over the lateral aspect of the heel. However no abscess is visualized. The subtalar joint is fused. Assessment & Plan Impression: Right lateral foot cellulitis in the setting of underlying calcaneus nonunion with broken hardware and a screw in the calcaneocuboid joint. Chronic osteomyelitis and/or infected nonunion is not ruled out. Plan: 1. No indication for acute surgical intervention at present. 2. Recommend continuing IV antibiotics. Would consider infectious diseases consultation. 3. Recommend outpatient follow-up with Dr. Carlton Álvarez at [facility]. He may eventually need removal of the hardware, biopsy, culture and possible ORIF of his nonunion. However, this is a complicated operation with risks for skin and wound dehiscence and should be done by an orthopedic traumatologist. This appointment should be within the next week or two. 4. Patient may ambulate weightbearing as tolerated with crutches on the right lower extremity in the interim. He should elevate his foot while in bed. Any questions feel free to contact orthopedics. Additional Copies To Lety Benedict
[2017-11-14] MEDS: MoRPHine SULFATE 4 MG/ML 1 ML CARP\\VIAL IV PRN ×2 (11:23→21:25)
[2017-11-14 13:39] VITALS: TEMP 37.8
--- NOTE | 2017-11-14 14:39 | Progress Note ---
Internal Med Progress Note Date of Service: November 14, 2017. Provider Documentation: SUBJECTIVE: The patient was seen and examined Pain and redness are better No fever ,chills OBJECTIVE: Vital Signs-as noted below Exam: General-No distress at rest Eyes-normal ENT-normal Neck-Supple Lungs-Clear to auscultate bilaterally Heart-Regular,no murmur Abdomen-Benign,no masses,bowel sound present Extremities-Left ankle joint fused Right ankle -lateral malleolar redness is improved Movement minimally painful Neuro-AAOx3 Lab data as noted below. ASSESSMENT & PLAN: This is a 57yo M with a PMH of traumatic injuries to BLE in 2006 s/p multiple surgeries, HTN, HLD, tobacco use disorder and other medical problems listed below who presents with R foot/ankle pain and swelling x 2 days. RLE cellulitis: -Meets SIRs criteria with out-patient fever of 101 and leuk of 12 -ESR of 40, CRP of 10.7, uric acid normal -Blood cultures pending -Ankle/foot XR with soft tissue swelling without acute fracture or dislocation -No evidence of hardware fracture or loosening -RLE ultrasound without evidence of DVT -Empiric coverage with vanco, zosyn -IV fluids, pain control -Ortho consult in setting of complicated surgical hx and possible septic joint, hardware infection -appreciate Ortho input -OP ortho appointment at [facility] [place] in 2-4 weeks -doubt any Septic Arthritis -ID input awaited HTN: -Normotensive -Cont lisinopril -BP is controlled Tobacco use disorder: -H/o 40 pack years -Not interested in cessation -Nicotine patch HLD: -Cont lovastatin Mood disorder: -Cont celexa GERD: -Cont PPI DVT Ppx: Lovenox SQ Code status: FULL Vital Signs: Date Time Temp Pulse Resp B/P (MAP) Pulse Ox O2 Delivery O2 Flow Rate FiO2 11/14/17 13:39 37.8 11/14/17 07:25 Room Air 11/14/17 07:01 37.1 79 16 121/74 (90) 96 Room Air 11/13/17 22:55 36.6 69 16 97/60 (72) 96 Room Air 11/13/17 19:45 Room Air 11/13/17 18:10 36.9 67 16 108/57 97 Room Air 11/13/17 18:10 36.9 67 16 108/57 (74) 97 Room Air 11/13/17 18:05 36.6 69 18 101/59 96 11/13/17 16:21 66 18 86/47 95 Room Air 11/13/17 15:06 76 18 101/52 95 Room Air Lab Results: Results Past 24 Hours Test 11/14/17 06:52 Range/Units White Blood Count 12.78 4.8-10.8 K/uL Red Blood Count 4.09 4.7-6.1 M/uL Hemoglobin 12.7 14.0-18.0 g/dL Hematocrit 36.2 42-52 % Mean Corpuscular Volume 88.5 80-100 fL Mean Corpuscular Hemoglobin 31.1 25-34 pg Mean Corpuscular Hemoglobin Concent 35.1 32-36 g/dl RDW Standard Deviation 40.7 36.4-46.3 fL RDW Coefficient of Variation 12.6 11.5-14.5 % Platelet Count 132 130-400 K/uL Mean Platelet Volume 10.3 7.4-10.4 fL Sodium Level 137 136-145 mmol/L Potassium Level 4.0 3.5-5.1 mmol/L Chloride Level 108 98-107 mmol/L Carbon Dioxide Level 23 21-32 mmol/L Anion Gap 6.0 3-11 mmol/L Blood Urea Nitrogen 12 7-18 mg/dl Creatinine 0.94 0.60-1.40 mg/dl Est Creatinine Clear Calc Drug Dose 87.8 ml/min Estimated GFR () 104.6 Estimated GFR (Non- 90.3 BUN/Creatinine Ratio 13.0 10-20 Random Glucose 99 70-99 mg/dl Calcium Level 7.7 8.5-10.1 mg/dl
[2017-11-14 15:20] VITALS: O2SAT 96
[2017-11-14 15:28] VITALS: BP 133/67; PULSE 94; TEMP 37.8; O2SAT 96
[2017-11-14] MEDS ORDERED: NURSING VERBAL MED ORDER ONE (16:00)
[2017-11-14] MEDS ORDERED: ACETAMINOPHEN 500 MG TAB PO PRN (16:15)
[2017-11-14] MEDS: ENOXAPARIN 40 MG/0.4 ML SYR SQ SCH (19:34)
[2017-11-14] MEDS: LOVASTATIN 20 MG TAB PO SCH (21:57)
[2017-11-14 22:53] VITALS: TEMP 37.4
[2017-11-14 23:19] VITALS: BP 115/65; PULSE 85; TEMP 37.1; O2SAT 95
[2017-11-14] MEDS ORDERED: VANCOMYCIN TROUGH ONE (23:30)
[2017-11-15] MEDS: VANCOMYCIN IV 1,250 MG in SODIUM CHLORIDE 0.9% 250ML 250 ML IV SCH ×4 (00:35→23:45)
[2017-11-15] MEDS: SODIUM CHLORIDE 0.9% 1000ML 1,000 ML IV SCH ×3 (00:35→19:05)
[2017-11-15] MEDS: PIPERACILL/TAZOBAC IV 3.375 GM in D5W 100ML IV SCH ×3 (03:04→19:48)
[2017-11-15] MEDS: MoRPHine SULFATE 4 MG/ML 1 ML CARP\\VIAL IV PRN ×4 (03:10→22:38)
[2017-11-15] MEDS: KETOROLAC TROMETHAMINE 30 MG/ML VIAL IV PRN ×3 (04:56→17:57)
[2017-11-15 06:49] VITALS: BP 121/70; PULSE 77; TEMP 37.1; O2SAT 94
--- NOTE | 2017-11-15 07:39 | Progress Note ---
Progress Note Date of Service November 15, 2017. Progress Note ID Consult Dictated #[id number] A/P: 1. Right ankle cellulitis, likely infected hardware -Follow cultures, continue abx -thank you
--- NOTE | 2017-11-15 07:58 | Orthopedic Progress Note ---
Orthopedic Progress Note Date of Service November 15, 2017. Subjective Additional Notes: Patient reports his symptoms are unchanged since yesterday. Continues to have difficulty weightbearing on this foot. He had a low-grade fever yesterday afternoon at 37.8. Objective Exam of the right foot reveals patient continue have tenderness over the lateral portion of the calcaneus. Still has some faint erythema. No tenderness over the ankle or subtalar joint. Neurovascularly intact. Date Time Temp Pulse Resp B/P (MAP) Pulse Ox O2 Delivery O2 Flow Rate FiO2 11/15/17 06:49 37.1 77 18 121/70 (87) 94 Room Air 11/15/17 00:43 Room Air 11/14/17 23:19 37.1 85 16 115/65 (82) 95 Room Air 11/14/17 22:53 37.4 11/14/17 15:28 37.8 94 18 133/67 (89) 96 Room Air 11/14/17 15:20 96 Room Air 11/14/17 13:39 37.8 Assessment & Plan Assessment: Right calcaneus cellulitis with underlying nonunion and broken hardware. Plan: Continue antibiotics per infectious diseases. Recommend outpatient follow-up with Dr. Carlton Álvarez at [place] for consideration of hardware removal and treatment of his nonunion. Weight-bear as tolerated on the right lower extremity with crutches. Any questions feel free to contact orthopedics.
[2017-11-15] MEDS: PANTOprazole SOD 40 MG TAB PO SCH (08:28)
[2017-11-15] MEDS: MULTIVITAMIN TAB PO SCH (08:28)
[2017-11-15] MEDS: CITALOPRAM 20 MG TAB PO SCH (08:28)
[2017-11-15] MEDS: NICOTINE 21 MG/24 HR TDSY TD SCH (08:28)
[2017-11-15] MEDS: LISINOPRIL 5 MG TAB PO SCH (08:28)
--- NOTE | 2017-11-15 09:08 | Pharmacy Progress Note ---
Pharmacy Antibiotic Prog Note Date of Service November 15, 2017. Subjective The patient is currently receiving vancomycin 1250 mg IV every 10 hours. The patient is currently on day # 3 of vancomycin IV therapy. Objective Height (Feet): 5 Height (Inches): 9.00 Weight (Kilograms): 79.700 Lab Results (24hrs): Test 11/14/17 23:18 Vancomycin Level Trough 10.1 mcg/ml (SEE COMMENT) Assessment & Plan Assessment * 57 yo M with LE cellulitis and concern for hardware infection (hx extensive ortho surgeries 2006 with infection requiring IV antibiotics via PICC and hardware insertion) * WBC remained elevated yesterday (no CBC today), patient continued to have fevers yesterday, but none thus far today * Currently on Zosyn and vancomycin - appropriate for now * SCr obtained x2 days stable - none obtained today. On order for tomorrow. Vancomycin * Goal trough 15-20 mcg/mL * Can target lower goals for uncomplicated cellulitis, but aimed for higher range 2nd hardware * Trough of 10.1 mcg/mL is subtherapeutic * This was drawn at an appropriate time and is likely at/near steady state * Do not anticipate further accumulation 2nd BMI * Will increase vancomycin (maintain dose but shorten interval between doses) * Repeat trough prior to 4th dose of new regimen Plan * Increase vancomycin 1250 mg IV q8h * Trough 11/16 @ 0730 Pharmacy will continue to follow and will adjust dose/frequency as necessary. Thank you
--- NOTE | 2017-11-15 09:39 | INFECT. DISEASE CONSULTATION ---
DATE OF CONSULTATION: 11/15/2017 HISTORY OF PRESENT ILLNESS: This is a 57-year-old gentleman who was admitted to the hospital with right ankle pain, swelling and erythema. He also had a fever of 101 degrees. He does have a history of multiple orthopedic surgeries secondary to a fall from a tree many years ago. The majority of his surgical history is from [facility]. He was admitted to the hospital and started on vancomycin and Zosyn. He was followed by orthopedic surgery here and there is no plan for surgical indication; however, it was recommended that he follow up with his orthopedic surgeon in the next week to 2 weeks. His blood cultures are pending at this time. His sed rate was elevated at 40. His CRP was elevated at 10 and his white blood cell count is 12.7. He did undergo a CAT scan of the lower extremity which did not show any evidence of abscess or osteomyelitis; however, hardware was noted. Review of old micro does reveal a history of pansensitive pseudomonas in 2007. He does not have any drug allergies. He states he has had no problems with infection since 2007 and has not been on any antibiotics. He is feeling somewhat better today. He states his fever is better. The pain and swelling is somewhat better, but he still feels he is in considerable pain and is unable to bear any weight on his right lower extremity. He denies any trauma to the area. He denies any nausea, vomiting, diarrhea, abdominal pain, cough, chest pain or shortness of breath. His remaining review of systems is unremarkable. PAST MEDICAL HISTORY: Significant for anxiety, depression, GERD, hyperlipidemia, hypertension, tobacco abuse. PAST SURGICAL HISTORY: For above orthopedic surgeries. FAMILY HISTORY: Noncontributory. SOCIAL HISTORY: Significant for daily tobacco use. He drinks occasionally. He is . ALLERGIES: He has no known drug allergies. MEDICATIONS: Tylenol, Celexa, lisinopril, multivitamins, Protonix, vancomycin, nicotine patch, lovastatin, Lovenox, Zosyn, Toradol, morphine. PHYSICAL EXAMINATION: VITAL SIGNS: His T-max is 37.8, current temperature is 37.1, pulse 77, respiratory rate 18, blood pressure 121/70, oxygen saturation is 94% on room air. GENERAL: He is awake, alert and oriented x3. He is in no acute distress. HEENT: Mucous membranes are moist. Extraocular muscles are intact. HEART: Regular. LUNGS: Clear. ABDOMEN: Soft. There is no lower extremity edema in the left lower extremities. Examination of the right lower extremity does reveal some lateral ankle edema and erythema. It is warm and tender to light palpation. There are no open lesions. LABORATORY STUDIES: CBC: White blood cell count 12.7, hemoglobin 12.7, platelets 132. Chemistry panel: Sodium 137, potassium 4.0, chloride 108, bicarbonate 23, BUN 12, creatinine 0.9, glucose 99. Vancomycin level was 10 yesterday. Lyme screen is negative. Blood cultures are pending. IMAGING: As above. ASSESSMENT AND PLAN: Right ankle infection, certainly concerning for infected hardware. He will remain on empiric antibiotics and plans will be made for followup appointment in [place] as he likely will need orthopedic intervention. We will follow the results of his blood cultures.
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
[2017-11-15 15:25] VITALS: BP 143/67; PULSE 80; TEMP 37.1; O2SAT 97
[2017-11-15] MEDS: ENOXAPARIN 40 MG/0.4 ML SYR SQ SCH (19:48)
[2017-11-15] MEDS: LOVASTATIN 20 MG TAB PO SCH (20:35)
[2017-11-15 22:55] VITALS: BP 156/88; PULSE 77; TEMP 36.8; O2SAT 98
[2017-11-16] MEDS: KETOROLAC TROMETHAMINE 30 MG/ML VIAL IV PRN ×2 (00:28→07:09)
[2017-11-16] MEDS: PIPERACILL/TAZOBAC IV 3.375 GM in D5W 100ML IV SCH ×2 (04:23→11:47)
[2017-11-16] MEDS: SODIUM CHLORIDE 0.9% 1000ML 1,000 ML IV SCH (04:24)
[2017-11-16] MEDS: MoRPHine SULFATE 4 MG/ML 1 ML CARP\\VIAL IV PRN ×2 (04:37→11:47)
[2017-11-16 07:17] VITALS: BP 120/57; PULSE 80; TEMP 37; O2SAT 95
[2017-11-16] MEDS ORDERED: VANCOMYCIN TROUGH ONE (07:30)
[2017-11-16 07:39] LABS: HEMATOCRIT 33.6 % (42-52); HEMOGLOBIN 11.8 g/dL (14.0-18.0); MEAN CELL VOLUME 87.5 fL (80-100); MEAN CORPUSCULAR HEMOGLOBIN 30.7 pg (25-34); MEAN CORPUSCULAR HGB CONC 35.1 g/dl (32-36); MEAN PLATELET VOLUME 9.8 fL (7.4-10.4); PLATELET COUNT 147 K/uL (130-400); RED CELL DISTRIBUTION WIDTH CV 12.4 % (11.5-14.5); RED CELL DISTRIBUTION WIDTH SD 40.1 fL (36.4-46.3); WHITE BLOOD COUNT 13.58 K/uL (4.8-10.8)
[2017-11-16 07:59] LABS: CREATININE 0.83 mg/dl (0.60-1.40)
[2017-11-16] MEDS: VANCOMYCIN IV 1,250 MG in SODIUM CHLORIDE 0.9% 250ML 250 ML IV SCH (08:00)
--- NOTE | 2017-11-16 08:52 | Clinical Documentation Query ---
CLINICAL DOCUMENTATION QUERY 57 year old male who presents to the Emergency Room with complaints of pain and swelling to his right foot and ankle. In your clinical opinion is this patient being managed for: ( + ) Early Sepsis POA treated with IVF's and multiple IV antibiotics ( ) Not Agree ( ) Other explanation of clinical findings (No explanation is considered a No Response) ( ) Unable to determine ( ) Need to Discuss (Phone CDS or qliq) (No discussion is considered a No Response) The medical record reflects the following clinical findings, treatment, and risk factors. Clinical Indicators: low grade fever 37.8, HR 92, BP 86/47, WBC 12.76, ESR 40, CRP 10.70. Treatment: IV Bolus and primary, IV Zosyn, IV Vancomycin, IV APAP, ID consult, Risk Factors: Age, ?osteomyelitis, Joint infection with malunion and hardware failure. Please clarify and document your clinical opinion in the progress notes and discharge summary. Terms such as "probable", "suspected", "likely", "questionable", "possible", or "still to be ruled out" are acceptable. IF IN AGREEMENT, YOU MUST DOCUMENT ABOVE DIAGNOSTIC STATEMENT IN DAILY PROGRESS NOTES AND DISCHARGE SUMMARY. This document is not part of the patient's record. * 2 of 4 SIRS criteria may clinically support both an infectious process and Sepsis. * Temperature >38C or <36C * Heart Rate >90/min * Respiratory Rate >20/min or PaCO2 <32 mm Hg * WBC >12,000/mm3 or <4000/mm3 or >10% immature bands Thank You, Hola Escobar RN [phone] & via qlicCNORTHWEST MEDICAL CENTERECT
--- NOTE | 2017-11-16 09:18 | Pharmacy Progress Note ---
Pharmacy Antibiotic Prog Note Date of Service November 16, 2017. Subjective The patient is currently receiving vancomycin 1250 mg IV every 8 hours. The patient is currently on day # 4 of vancomycin IV therapy. Objective Height (Feet): 5 Height (Inches): 9.00 Weight (Kilograms): 79.700 Lab Results (24hrs): Test 11/16/17 07:26 11/16/17 07:31 White Blood Count 13.58 K/uL (4.8-10.8) Red Blood Count 3.84 M/uL (4.7-6.1) Hemoglobin 11.8 g/dL (14.0-18.0) Hematocrit 33.6 % (42-52) Mean Corpuscular Volume 87.5 fL (80-100) Mean Corpuscular Hemoglobin 30.7 pg (25-34) Mean Corpuscular Hemoglobin Concent 35.1 g/dl (32-36) RDW Standard Deviation 40.1 fL (36.4-46.3) RDW Coefficient of Variation 12.4 % (11.5-14.5) Platelet Count 147 K/uL (130-400) Mean Platelet Volume 9.8 fL (7.4-10.4) Creatinine 0.83 mg/dl (0.60-1.40) Est Creatinine Clear Calc Drug Dose 99.4 ml/min Estimated GFR () 114.0 Estimated GFR (Non- 98.4 Vancomycin Level Trough 13.7 mcg/ml (SEE COMMENT) Assessment & Plan Assessment * 57 yo M with LE cellulitis and concern for hardware infection (hx extensive ortho surgeries 2006 with infection requiring IV antibiotics via PICC and hardware insertion) * WBC persistently elevated but stable today. Afebrile since 11/14 afternoon * Currently on Zosyn and vancomycin - appropriate for now * SCr stable and likely at/near baseline Vancomycin * Goal trough 15-20 mcg/mL * Can target lower goals for uncomplicated cellulitis, but aimed for higher range 2nd hardware * Trough of 13.7 mcg/mL is subtherapeutic * This was drawn at an appropriate time and is likely at/near steady state * Do not anticipate further accumulation 2nd BMI * Will increase vancomycin slightly 2nd persistent elevation in WBC * Repeat trough prior to 4th dose of new regimen Plan * Increase vancomycin 1500 mg IV q8h * Trough 11/17 @ 1330 Pharmacy will continue to follow and will adjust dose/frequency as necessary. Thank you
[2017-11-16] MEDS: MULTIVITAMIN TAB PO SCH (09:28)
[2017-11-16] MEDS: LISINOPRIL 5 MG TAB PO SCH (09:28)
[2017-11-16] MEDS: CITALOPRAM 20 MG TAB PO SCH (09:28)
[2017-11-16] MEDS: PANTOprazole SOD 40 MG TAB PO SCH (09:28)
[2017-11-16] MEDS: NICOTINE 21 MG/24 HR TDSY TD SCH (09:29)
--- NOTE | 2017-11-16 10:17 | Progress Note ---
Subjective Date of Service: November 16, 2017. Subjective Pt evaluation today including: conversation w/ patient, conversation w/ family , physical exam, chart review, lab review pt states pain essenitally unchanged, was able to ambulate overnight. states he has no followup planned with ortho post d/c. remains on Iv abx, tolerating well. afebrile overnight. wbc 13 today. no f/c. no drainage or open wounds. asking when he will be d/c home. all remaining ros reviewed and are negative. Problem List Medical Problems: (1) Cellulitis of right lower extremity Status: Acute Objective Vital Signs Date Time Temp Pulse Resp B/P (MAP) Pulse Ox O2 Delivery O2 Flow Rate FiO2 11/16/17 07:30 Room Air 11/16/17 07:17 37.0 80 15 120/57 (78) 95 11/15/17 23:45 Room Air 11/15/17 22:55 36.8 77 18 156/88 (110) 98 Room Air 11/15/17 15:25 37.1 80 18 143/67 (92) 97 Room Air 11/15/17 15:16 Room Air Physical Exam General Appearance: WD/WN, no apparent distress Eyes: normal inspection, EOMI Neck: supple Respiratory/Chest: lungs clear, normal breath sounds, no respiratory distress Cardiovascular: regular rate, rhythm, no edema Abdomen: soft Extremities: non-tender, + inflammation, + swelling Neurologic/Psychiatric: alert, oriented x 3 Skin: normal color Comments: right lateral ankle with some erythema, warmth, less tender, min less edema today. Laboratory Results Item Value Date Time Blood Culture - Preliminary Resulted 11/13/17 1400 Blood NO GROWTH TO DATE. Blood Culture - Preliminary Resulted 11/13/17 1405 Blood NO GROWTH TO DATE. Last 24 Hours Test 11/16/17 07:26 11/16/17 07:31 White Blood Count 13.58 K/uL Red Blood Count 3.84 M/uL Hemoglobin 11.8 g/dL Hematocrit 33.6 % Mean Corpuscular Volume 87.5 fL Mean Corpuscular Hemoglobin 30.7 pg Mean Corpuscular Hemoglobin Concent 35.1 g/dl RDW Standard Deviation 40.1 fL RDW Coefficient of Variation 12.4 % Platelet Count 147 K/uL Mean Platelet Volume 9.8 fL Creatinine 0.83 mg/dl Est Creatinine Clear Calc Drug Dose 99.4 ml/min Estimated GFR () 114.0 Estimated GFR (Non- 98.4 Vancomycin Level Trough 13.7 mcg/ml Hepatitis C Antibody Screen NEG Assessment and Plan (1) Cellulitis of right lower extremity Assessment & Plan: concern for infected hardware, no ortho intervention planned , he will likely need appt [place]o at [facility] [place]. has h/o pseudomonas in 2007. continue iv abx for now. if blood culture negative would suggest changing abx to doxy 100mg po bid and levaquin 500mg daily (previous pseudomonas was jackson sensitive) and have pt follow with ortho to eval for additional surgical procedures. would give 4 weeks.
[2017-11-16] MEDS ORDERED: NURSING VERBAL MED ORDER ONE (11:45)
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
--- NOTE | 2017-11-16 12:31 | Orthopedic Progress Note ---
Orthopedic Progress Note Date of Service November 16, 2017. Subjective Additional Notes: Pain improved, but still painful with weight bearing. States the swelling slightly is mildly improved. Objective Mild swelling/edema/erythema right ankle/lateral foot, tender with palpation, tolerates ankle ROM with mild discomfort. patient seen and evaluated by Dr. Cain today. 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 Recommend outpatient follow-up with Dr. Carlton Benedict at [place] for consideration of hardware removal and treatment of his nonunion. Appointment scheduled for 11/18/17 at 12:30 p.m. Weight-bear as tolerated on the right lower extremity with crutches. Any questions feel free to contact orthopedics. Patient agrees with plan and will call with any questions. Okay from orthopaedic standpoint for discharge to home today on oral antibiotics as recommended by Infectious Disease. (1) Cellulitis of right lower extremity Acute
--- NOTE | 2017-11-16 12:33 | Consultant Recommendations ---
Assistant Finance Manager Recommendations Date of Service November 16, 2017. Assistant Finance Manager Recommendations Weight bear as tolerated right lower extremity with the assistance of crutches. Ice/elevate right foot above heart to relieve pain/swelling. Ankle range of motion as tolerated. Follow up with Dr. Marcelo Benedict on 11/18/17 at 12:30 p.m. at [facility] in [place], [place] as scheduled.
[2017-11-16] MEDS ORDERED: OXYCODONE/ACETAMINOPHEN 5-325 TAB PO PRN (13:30)
[2017-11-16] MEDS ORDERED: LACTOBACILLUS ACIDOPHILUS (FLORANEX) TAB PO SCH (14:00)
[2017-11-16] MEDS ORDERED: VANCOMYCIN IV 1,500 MG in SODIUM CHLORIDE 0.9% 500ML 500 ML IV SCH (14:00)
[2017-11-16] MEDS ORDERED: DXY100 PO (14:13)
[2017-11-16] MEDS ORDERED: LCTX PO (14:13)
[2017-11-16] MEDS ORDERED: LVQ500 PO (14:13)
[2017-11-16] MEDS ORDERED: OXYC-57 PO (14:13)
[2017-11-16] MEDS ORDERED: NICO21DI4 TD (14:13)
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
[2017-11-16 14:32] VITALS: BP 120/57; PULSE 80; TEMP 37; O2SAT 95
--- NOTE | 2017-11-16 18:25 | Discharge Summary ---
Discharge Summary Date of Service November 16, 2017. Discharge Summary Admission Date: November 13, 2017 at 16:22 Discharge Date: November 16, 2017 Discharge Disposition: Home Principal Diagnosis: Right Ankle Cellulitis.Possible Hardwire infection Secondary Diagnoses/Problems: Pleasea see H&P and Hospital progress note Consultations: Ortho and ID Medication Reconciliation New Medications: Doxycycline Hyclate (Doxycycline Hyclate) 100 Mg Cap 100 MG PO BID for 28 Days, #56 CAP Lactobacillus Acidophilus (Floranex) 1 Tab Tab 2 TAB PO TID for 30 Days, #180 TAB Levofloxacin (Levofloxacin) 500 Mg Tab 500 MG PO DAILY@11 for 28 Days, #28 TAB Nicotine (Nicoderm Cq) 21 Mg/24 Hr Dis 1 PATCH TD QAM for 30 Days, #30 PATCH Oxycodone/Acetaminophen 5MG/325MG (Percocet 5MG/325MG) Tab 1 TAB PO Q4H PRN for Pain for 10 Days, #30 TAB PAIN Continued Medications: Citalopram Hydrobromide (Citalopram) 20 Mg Tab 20 MG PO DAILY Esomeprazole Magnesium (Nexium) 20 Mg Capcr 20 MG PO DAILY Lisinopril (Prinivil) 5 Mg Tab 5 MG PO DAILY Lovastatin (Mevacor) 40 Mg Tab 40 MG PO HS Meloxicam (Mobic) 15 Mg Tab 15 MG PO DAILY Multivitamin (Multivitamin) Tab 1 TAB PO DAILY, TAB Admission Information HPI (per Admitting provider): This is a 57yo M with a PMH of traumatic injuries to BLE in 2006 s/p multiple surgeries, HTN, HLD, tobacco use disorder and other medical problems listed below who presents with R foot/ankle pain and swelling x 2 days. Patient's history is significant for multiple orthopedic surgeries after he fell ~15 feet out of a tree stand while hunting in 2006. Developed an infection after initial surgery and required multiple washouts and PICC line abx in [id number]. A majority of surgeries were performed in [place] by Dr. Benedict and hardware is present in both lower extremities. Denies having any issues since 2007. Over the past few days, has been experiencing worsening pain in lateral aspect of R ankle and foot with associated swelling and redness. Denies recent fall, trauma or wound. No history of gout or tick bites. Tried to go to work yesterday but developed worsening pain and fever. Went to urgent care and was started on Keflex. Pain worsened overnight and patient saw PCP this morning. Was found to have a fever of 101 and leukocytosis of 18 and was sent to ED for further evaluation of infection. Patient is unable to ambulate without crutches. Pain persists at a 6/10 despite morphine. Denies chills, lightheadedness, headache, visual changes, URI symptoms, chest pain, SOB, abd pain, nausea, vomiting, dysuria, constipation or diarrhea. Found to have a low grade fever of 100, leukocytosis of 12.75 and elevated ESR and CRP. Lactate is WNL. Past Medical/Surgical History Medical Problems: (1) Anxiety Status: Chronic (2) Depression Status: Chronic (3) GERD (gastroesophageal reflux disease) Status: Chronic (4) HLD (hyperlipidemia) Status: Chronic (5) HTN (hypertension) Status: Chronic (6) Tobacco use disorder Status: Chronic (7) Traumatic injury of left lower extremity Permanent Comment: S/p multiple surgeries by Marsha Dillon. 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 ) Immunizations History of Influenza Vaccine: No History of Tetanus Vaccine?: Yes Tetanus Immunization Date: Jul 07, 2002 History of Pneumococcal: No History of Hepatitis B Vaccine: No Allergies Coded Allergies: No Known Allergies (Verified , 11/13/17) Home Medications Scheduled Citalopram Hydrobromide (Citalopram), 20 MG PO DAILY Esomeprazole Magnesium (Nexium), 20 MG PO DAILY Lisinopril (Prinivil), 5 MG PO DAILY Lovastatin (Mevacor), 40 MG PO HS Meloxicam (Mobic), 15 MG PO DAILY Multivitamin (Multivitamin), 1 TAB PO DAILY Review of Systems Ten systems reviewed and negative except as noted in the HPI. Physical Exam H&P v2 Physical Exam Vital Signs Date Time Temp Pulse Resp B/P (MAP) Pulse Ox O2 Delivery O2 Flow Rate FiO2 11/13/17 16:21 66 18 86/47 95 Room Air 11/13/17 15:06 76 18 101/52 95 Room Air 11/13/17 13:09 37.8 92 16 131/81 96 Room Air General Appearance: WD/WN, no apparent distress Head: normocephalic, atraumatic Eyes: normal inspection, PERRL, sclerae normal ENT: normal ENT inspection, hearing grossly normal, pharynx normal Neck: supple, thyroid normal, trachea midline Respiratory/Chest: chest non-tender, lungs clear, normal breath sounds, no respiratory distress, no accessory muscle use Cardiovascular: regular rate, rhythm, no murmur, normal peripheral pulses Abdomen/GI: non tender, soft, no organomegaly Back: normal inspection Extremities/Musculoskelatal: no calf tenderness, no pedal edema, + pertinent finding (Lateral R foot/ankle with TTP, edema, redness and warmth to touch) Neurologic/Psych: no motor/sensory deficits, alert, normal mood/affect, oriented x 3 Skin: normal color, warm/dry Diagnostics H&P v2 Diagnostics Laboratory Results Results Past 24 Hours Test 11/13/17 14:00 11/13/17 14:11 Range/Units White Blood Count 12.76 4.8-10.8 K/uL Red Blood Count 4.56 4.7-6.1 M/uL Hemoglobin 14.3 14.0-18.0 g/dL Hematocrit 40.4 42-52 % Mean Corpuscular Volume 88.6 80-100 fL Mean Corpuscular Hemoglobin 31.4 25-34 pg Mean Corpuscular Hemoglobin Concent 35.4 32-36 g/dl Platelet Count 162 130-400 K/uL Mean Platelet Volume 10.3 7.4-10.4 fL Neutrophils (%) (Auto) 69.4 % Lymphocytes (%) (Auto) 13.9 % Monocytes (%) (Auto) 15.5 % Eosinophils (%) (Auto) 0.6 % Basophils (%) (Auto) 0.2 % Neutrophils # (Auto) 8.84 1.4-6.5 K/uL Lymphocytes # (Auto) 1.78 1.2-3.4 K/uL Monocytes # (Auto) 1.98 0.11-0.59 K/uL Eosinophils # (Auto) 0.08 0-0.5 K/uL Basophils # (Auto) 0.03 0-0.2 K/uL RDW Standard Deviation 40.7 36.4-46.3 fL RDW Coefficient of Variation 12.6 11.5-14.5 % Immature Granulocyte % (Auto) 0.4 % Immature Granulocyte # (Auto) 0.05 0.00-0.02 K/uL Erythrocyte Sedimentation Rate 40 0-14 mm/hr Sodium Level 136 136-145 mmol/L Potassium Level 4.1 3.5-5.1 mmol/L Chloride Level 106 98-107 mmol/L Carbon Dioxide Level 24 21-32 mmol/L Anion Gap 6.0 3-11 mmol/L Blood Urea Nitrogen 12 7-18 mg/dl Creatinine 0.88 0.60-1.40 mg/dl Est Creatinine Clear Calc Drug Dose 93.8 ml/min Estimated GFR () 111.3 Estimated GFR (Non- 96.0 BUN/Creatinine Ratio 13.2 10-20 Random Glucose 114 70-99 mg/dl Uric Acid 3.5 2.6-7.2 mg/dl Calcium Level 8.6 8.5-10.1 mg/dl Total Bilirubin 0.4 0.2-1 mg/dl Aspartate Amino Transf (AST/SGOT) 12 15-37 U/L Alanine Aminotransferase (ALT/SGPT) 19 12-78 U/L Alkaline Phosphatase 77 45-117 U/L C-Reactive Protein 10.70 0-0.29 mg/dl Total Protein 7.3 6.4-8.2 gm/dl Albumin 3.5 3.4-5.0 gm/dl Globulin 3.8 2.5-4.0 gm/dl Albumin/Globulin Ratio 0.9 0.9-2 Lyme Disease IgG Antibody NEG NEG Lyme Disease IgM Antibody NEG NEG Bedside Lactic Acid Venous 0.43 0.90-1.70 mmol/L Microbiology Results 11/13/17 Blood Culture, Received Pending 11/13/17 Blood Culture, Received Pending Diagnostic Radiology R ANKLE and FOOT XR: ANKLE: Mild marginal spurring about the tibiotalar joint. No acute fracture, dislocation or osteochondral defect. Post traumatic and postoperative changes of the calcaneus as below. Prominent dorsal spurring about the anterior process talus. Large enthesophyte about the Achilles calcaneus. Moderate joint effusion. Mild soft tissue swelling about the ankle, greatest laterally. Suspected vascular calcifications. FOOT: Chronic healed fracture deformity of the calcaneus with multiple plate and screw fusion hardware from prior ORIF. Degenerative changes of the calcaneal cuboid articulation with bony fusion of the subtalar joint. No evidence of hardware fracture or loosening. Type I accessory navicular. Mild to moderate osteoarthritis about the first MTP joint with mild hallux valgus deformity. No acute fracture or dislocation identified. IMPRESSION: 1. Soft tissue swelling without acute fracture or dislocation. 2. Postoperative changes of the calcaneus as above without evidence of hardware fracture or loosening. Impression H&P v2 Impression Assessment and Plan This is a 57yo M with a PMH of traumatic injuries to BLE in 2006 s/p multiple surgeries, HTN, HLD, tobacco use disorder and other medical problems listed below who presents with R foot/ankle pain and swelling x 2 days. RLE cellulitis: -Meets SIRs criteria with out-patient fever of 101 and leuk of 12 -Non-toxic appearing -Lactate WNL -ESR of 40, CRP of 10.7, uric acid normal -Blood cultures pending -Ankle/foot XR with soft tissue swelling without acute fracture or dislocation No evidence of hardware fracture or loosening -RLE ultrasound without evidence of DVT -Empiric coverage with vanco, zosyn -IV fluids, pain control -Ortho consult in setting of complicated surgical hx and possible septic joint, hardware infection HTN: -Normotensive -Cont lisinopril Tobacco use disorder: -H/o 40 pack years -Not interested in cessation -Nicotine patch HLD: -Cont lovastatin Mood disorder: -Cont celexa GERD: -Cont PPI DVT Ppx: Lovenox SQ Code status: FULL PCP: [facility] Dispo: Admitted to med/surg. Plan to return home once medically stable. Patient seen in collaboration with Dr. Harrington. Please see addendum. ATTENDING ADDENDUM The patient was seen and examined in medical floor Admitted with right ankle pain, swelling and redness for about 1 week Has a fever as well Denies any chest pain, shortness of breath and/or palpitation on examination No apparent distress at rest Hemodynamically stable Local exam of the right ankle: Mildly swollen, redness involving lateral medial area, tender with increased local temperature is Ankle movement is moderately painful Labs, imaging studies were reviewed Heart the consulted Review with assessment and plan as mentioned earlier Dr. Varinder Harrington Resuscitation Status VTE Prophylaxis Physical Exam (per Admitting): General Appearance: WD/WN, no apparent distress Head: normocephalic, atraumatic Eyes: normal inspection, PERRL, sclerae normal ENT: normal ENT inspection, hearing grossly normal, pharynx normal Neck: supple, thyroid normal, trachea midline Respiratory/Chest: chest non-tender, lungs clear, normal breath sounds, no respiratory distress, no accessory muscle use Cardiovascular: regular rate, rhythm, no murmur, normal peripheral pulses Abdomen/GI: non tender, soft, no organomegaly Back: normal inspection Extremities/Musculoskelatal: no calf tenderness, no pedal edema, + pertinent finding (Lateral R foot/ankle with TTP, edema, redness and warmth to touch) Neurologic/Psych: no motor/sensory deficits, alert, normal mood/affect, oriented x 3 Skin: normal color, warm/dry Hospital Course This is a 57yo M with a PMH of traumatic injuries to BLE in 2006 s/p multiple surgeries, HTN, HLD, tobacco use disorder and other medical problems listed below who presents with R foot/ankle pain and swelling x 2 days. RLE cellulitis: Early Sepsis POA treated with IVF's and multiple IV antibiotics -Meets SIRs criteria with out-patient fever of 101 and leuk of 12 -ESR of 40, CRP of 10.7, uric acid normal -Blood cultures pending -Ankle/foot XR with soft tissue swelling without acute fracture or dislocation -No evidence of hardware fracture or loosening -RLE ultrasound without evidence of DVT -Empiric coverage with vanco, zosyn -IV fluids, pain control -Ortho consult in setting of complicated surgical hx and possible septic joint, hardware infection -OP ortho appointment at [facility] in 2-4 weeks -doubt any Septic Arthritis -Appreciate ID input and recommendation -May have infection in the hardware and likely to have surgery in near future -Ortho will contact Dr. Álvarez at [facility] and the patient is likely to be transferred tomorrow at [facility] -Oral Antibiotic as per Ortho -Awaiting ortho recommendation regarding discharge HTN: -Normotensive -Cont lisinopril -BP is controlled Tobacco use disorder: -H/o 40 pack years -Not interested in cessation -Nicotine patch HLD: -Cont lovastatin Mood disorder: -Cont celexa GERD: -Cont PPI DVT Ppx: Lovenox SQ Code status: FULL Disposition Awaited Total time spent on discharge = 35 minutes This includes examination of the patient, discharge planning, medication reconciliation, and communication with other providers. Discharge Instructions Date of Service November 16, 2017. Admission Reason for Admission: Cellulitis Of Right Lower Extremity Discharge Discharge Diagnosis / Problem: Right Ankle Cellulitis.Possible Hardwire infection Discharge Goals Goal(s): Prevent Disease Progression Activity Recommendations Activity Limitations: resume your previous activity . Instructions / Follow-Up Instructions / Follow-Up Dr Asher office will call with appointment within 5-7 days.[address] up [address] Marcelo Benedict on 11/18/17 at 12:30 p.m. at [facility] in [facility] Diet Patient's current hospital diet: AHA Diet (Heart Healthy) Discharge Diet Recommended Diet: AHA Diet (Heart Healthy) Pending Studies Studies pending at discharge: no Medical Emergencies . Who to Call and When: Medical Emergencies: If at any time you feel your situation is an emergency, please call 911 immediately. . Non-Emergent Contact Non-Emergency issues call your: Primary Care Provider . Past History Medical & Surgical History: (1) Cellulitis of right lower extremity (2) HTN (hypertension) (3) Tobacco use disorder (4) HLD (hyperlipidemia) (5) Depression (6) Traumatic injury of left lower extremity (7) Traumatic injury of right lower extremity . "Provider Documentation" section prepared by Kodak Harrington. . Car Coupler Recommendations Car Coupler Recommendations: Weight bear as tolerated right lower extremity with the assistance of crutches. Ice/elevate right foot above heart to relieve pain/swelling. Ankle range of motion as tolerated. Follow up with Dr. Marcelo Benedict on 11/18/17 at 12:30 p.m. at [facility] in [place], [place] as scheduled. <Electronically signed by [employer]ak Harrington M.D.> Signed: 11/16/17 8213 Additional Copies To Maeve Asher D.O.
[2017-11-16] MEDS ORDERED: DOXYCYCLINE HYCLATE 100 MG CAP PO SCH (21:00)
[2017-11-17] MEDS ORDERED: LEVOFLOXACIN 500 MG TAB PO SCH (11:00)
[2017-11-17] MEDS ORDERED: VANCOMYCIN TROUGH ONE (13:30)
== END 2017-11-16 15:15 | disposition home or self-care (01) | DRG 559 ==
LOC: C.EDB 13:07 → C.MSN 16:22 → ENRESERV 17:10 → CANRESERV 17:10 → ENRESERV 17:29
PROVIDERS: ADMIT Internal Medicine; ATTEND Internal Medicine
DX: T84.69XA Infection and inflammatory reaction due to internal fixation device of other site, initial encounter (principal); A41.9 Sepsis, unspecified organism; L03.115 Cellulitis of right lower limb; S92.024K Nondisplaced fracture of anterior process of right calcaneus, subsequent encounter for fracture with nonunion; T84.213A Breakdown (mechanical) of internal fixation device of bones of foot and toes, initial encounter; T84.223A Displacement of internal fixation device of bones of foot and toes, initial encounter; W14.XXXD Fall from tree, subsequent encounter; I10 Essential (primary) hypertension; F17.200 Nicotine dependence, unspecified, uncomplicated; E78.5 Hyperlipidemia, unspecified; F41.9 Anxiety disorder, unspecified; F32.9 Major depressive disorder, single episode, unspecified; K21.9 Gastro-esophageal reflux disease without esophagitis; Z87.81 Personal history of (healed) traumatic fracture; Z86.19 Personal history of other infectious and parasitic diseases; Z98.1 Arthrodesis status; Z98.890 Other specified postprocedural states; Z79.1 Long term (current) use of non-steroidal anti-inflammatories (NSAID); Z79.899 Other long term (current) drug therapy; Z82.49 Family history of ischemic heart disease and other diseases of the circulatory system